=== PATIENT | female | born 1990 | race Caucasian/White ===

== ENCOUNTER 2020-01-02 08:56 | Emergency (ER) | payer BC ==
[~2020-01-02] VITALS: Ht 177.8 cm; Wt 74.0 kg
[2020-01-02] MEDS ORDERED: proCHLORperazine 10 MG/2 ml inj IV ONE (09:20)
[2020-01-02] MEDS ORDERED: normal saline 1000ml 1,000 ML IV ONE (09:20)
[2020-01-02] MEDS ORDERED: SUMAtriptan succ. 6 MG/0.5ml vial SQ ONE (09:20)
[2020-01-02] MEDS ORDERED: acetaminophen 325mg tablet PO ONE (09:20)
[2020-01-02] MEDS ORDERED: ketorolac trometh. 30mg/ml inj. IV ONE (09:20)
[2020-01-02] MEDS ORDERED: aspirin 325mg tablet PO ONE (09:20)
[2020-01-02] MEDS ORDERED: SUMA100T PO (10:10)
[2020-01-02 10:35] VITALS: BP 100/68
== END 2020-01-02 10:36 | disposition home or self-care (01) ==
LOC: ER 08:56
DX: G43.909 Migraine, unspecified, not intractable, without status migrainosus (principal); H53.149 Visual discomfort, unspecified; Z79.899 Other long term (current) drug therapy
CPT/HCPCS: 96372; 96374; 96375; 99284; J0780; J1885; J7030; J3030

== ENCOUNTER 2020-01-19 19:21 | Emergency (ER) | payer BC ==
[~2020-01-19] VITALS: Ht 177.8 cm; Wt 74.5 kg
[~2020-01-19 19:21] MED LIST: SUMA100T PO
--- NOTE | 2020-01-19 20:08 | NUR ---
PT WITH MINOR HEADACHES ROOSEVELT AUGUST. WAS REALLY DEHYDRATED ON December AND STATES SHE THNKS THIS "SET OFF" THIS CHRONIC [place] THAT SHE HAS NOT BEEN ABLE TO GET ANY RELIEF OF SYMPTOMS. PT WITH SOME PHOTOSENSITIVE AND IS NAUSEAUS. PT DOES NOT HAVE A PCP AND SAW PRACTITIONER PETRA COPE. TOPAMAX AND ZOLOFT PERSCRIBED AND A SAMPLE OF NEURTECH PROVIDED. NEURTECH PROVIDED A 2 HR RELIEF, BUT SHE CANNOT TAKE BUT ONCE DAILY. SEEN AT [facility] ER ON THE December, WAS TREATED AND THEN SYMPTMOS CAME BACK THEY NEXT DAY. PT HAD MRI YESTERDAY ANS IS AWAITINIG RESULTS BUT WAS INITIALLY TOLD IT LOOKED NORMAL. HAS BEEN GOING TO [facility] W[facility] TO HELP IN THE EVENT IT MAY BE HER NECK.
[2020-01-19] MEDS ORDERED: dexamethasone sod phosphate 10mg/ml inj IV STA (21:46)
[2020-01-19] MEDS ORDERED: diphenhydrAMINE 50 mg/ml inj IV ONE (21:50)
[2020-01-19] MEDS ORDERED: normal saline 1000ML IV soln IVB ONE (21:50)
[2020-01-19] MEDS ORDERED: ketorolac tromethamine 15mg/ml inj. IV ONE (21:50)
[2020-01-19] MEDS ORDERED: proCHLORperazine 10 MG/2 ml inj IV ONE (21:50)
--- NOTE | 2020-01-19 22:26 | NUR ---
PIV IN PLACE, GIVEN 1 LITER NS AND IV: DEXAMETHASONE, TORADOL, COMPAZINE, BENEDRYL. 2 ADTL WARM BLANKETS PROVIDED. PT REPORTS HER MOTHER IS WAITING FOR HER IN THEPARKING LOT. PT IS NERVOUS THAT HER SYMPTMS WILL BE RELIEVED BUT THEN WILL RETURN TOMORROW 9AS DID LAST WEEK WHEN SHE WAS SEEN FOR SAME IN OUR ER).
--- NOTE | 2020-01-19 23:00 | NUR ---
Pt sleeping, awkened to take vs. vss. pt with no pain and no further nausea. 1 liter ns infused.
--- NOTE | 2020-01-20 00:01 | NUR ---
PT REPORTS TO PROVIDER AND MYSELF THAT MRI COMPLETED TODAY () AT [facility] AND THAT THE IMAGING AND RESULTS WERE TO BE SENT TO OUR HOSPITAL. [facility]ARP SPOOLER REVIEWING PACS AND UNABLE TO FIND ANY IMAGING. PT AND TERA WOLFE UPDATED. PT IS AGREEABLE TO DC HER SYMPTOMS ARE GONE.
[2020-01-20 00:05] VITALS: BP 101/59
== END 2020-01-20 00:54 | disposition home or self-care (01) ==
LOC: ER 19:22
DX: E86.0 Dehydration (principal); R51 Headache; Z79.899 Other long term (current) drug therapy
CPT/HCPCS: 96361; 96374; 96375; 99285; J0780; J1100; J1200; J1885; J7030